=== PATIENT | male | born 1970 | race African-American/Black ===

== ENCOUNTER 2021-09-02 11:38 | Inpatient (IN) | payer MEDICAID, OTHER ==
[~2021-09-02] VITALS: Ht 188 cm; Wt 154.2 kg
[~2021-09-02 11:38] MED LIST: HYDR12.529
[2021-09-02] MEDS ORDERED: METHYLPREDNISOLONE SOD SUCC 125 MG/2 ML VIAL IV STA (11:49)
[2021-09-02] MEDS ORDERED: ALBUTEROL (0.083%) 2.5MG/3ML NEB HHN STA (11:49)
[2021-09-02] MEDS ORDERED: MAGNESIUM 2 G PREMIX 50 ML IV STA (11:49)
[2021-09-02] MEDS ORDERED: IPRATROPIUM BROMIDE (0.02%) 0.5MG/2.5ML NEB HHN STA (11:49)
[2021-09-02] MEDS ORDERED: FUROSEMIDE 40MG/4ML VIAL IVP ONE (12:00)
[2021-09-02 12:33] LABS: BASOPHILS % 0.3 % (0.0-2.0); HEMATOCRIT. 38.1 % (42.0-52.0); HEMOGLOBIN. 12.2 g/dL (14.0-18.0); LYMPHOCYTES % 17.2 % (20.0-50.0); MEAN CORPUSCULAR HEMOGLOBIN 26.5 pg (28.0-32.0); MEAN CORPUSCULAR VOLUME 82.4 fL (80.0-94.0); MEAN PLATELET VOLUME 9.2 fl (7.4-10.4); MONOCYTES % 6.9 % (2.0-8.0); NEUTROPHILS % 74.6 % (40.0-76.0); PLATELET 227 x1000/uL (130-400); RED BLOOD CELL COUNT 4.63 mill/uL (4.7-6.1); RED CELL DISTRIBUTION WIDTH 16.7 % (11.6-14.6)
[2021-09-02 12:36] LABS: CHLORIDE 96 mEq/L (98-107)
[2021-09-02] MEDS ORDERED: KCL 20MEQ/100ML PREMIX 100 ML IV ONE (13:15)
[2021-09-02] MEDS ORDERED: POTASSIUM CHLORIDE 20MEQ TABLET SR PO ONE (13:15)
[2021-09-02] MEDS ORDERED: HYDRALAZINE 20MG/ML VIAL IV PRN (15:15)
[2021-09-02] MEDS ORDERED: MORPHINE SULFATE 2 MG/ML CPJ (NOT FOR IM USE) IV PRN (15:15)
[2021-09-02] MEDS ORDERED: CLONIDINE 0.1MG TABLET PO PRN (15:15)
[2021-09-02] MEDS ORDERED: HYDROCODONE/ACETAMINOPHEN 5/325MG TABLET PO PRN (15:15)
[2021-09-02] MEDS ORDERED: GUAIFENESIN 200MG/10ML SUGAR FREE UDC PO PRN (15:15)
[2021-09-02] MEDS ORDERED: ACETAMINOPHEN 325MG TABLET PO PRN (15:15)
[2021-09-02] MEDS ORDERED: MAGNESIUM/ALUMINUM HYDROXIDE/SIMETHICONE 30ML UDC PO PRN (15:15)
[2021-09-02] MEDS ORDERED: IPRATROPIUM/ALBUTEROL 0.5-3(2.5)MG/3ML NEB HHN PRN (15:15)
[2021-09-02] MEDS ORDERED: DOCUSATE SODIUM 100MG CAPSULE PO PRN (15:15)
[2021-09-02] MEDS ORDERED: DIPHENHYDRAMINE 50MG/ML VIAL IV PRN (15:15)
[2021-09-02] MEDS ORDERED: LORAZEPAM 2MG/ML CPJ IV PRN (15:15)
[2021-09-02] MEDS ORDERED: ONDANSETRON HCL 4MG/2ML INJ IV PRN (15:15)
[2021-09-02] MEDS ORDERED: LEVOFLOXACIN 500MG PREMIX 100 ML IV ONE (16:15)
[2021-09-02 17:28] VITALS: BP 184/101
[2021-09-02] MEDS: ENOXAPARIN 40MG/0.4ML SYR SUBCUT SCH (18:08)
[2021-09-02] MEDS ORDERED: FURO80TA3 PO (18:51)
[2021-09-02] MEDS ORDERED: METF-416 PO (18:51)
[2021-09-02] MEDS ORDERED: LOSA100T32 PO (18:51)
[2021-09-02] MEDS ORDERED: SPIR50TA5 PO (18:51)
[2021-09-02] MEDS ORDERED: CARV25TA47 PO (18:51)
[2021-09-02] MEDS ORDERED: ATOR20TA65 PO (18:51)
[2021-09-02] MEDS ORDERED: EMPA25TA PO (18:51)
[2021-09-02 20:00] VITALS: BP 187/102
[2021-09-02] MEDS: AMLODIPINE 10MG TABLET PO SCH (20:41)
[2021-09-02] MEDS: SODIUM CHLORIDE 0.9% INJ 3ML FLUSH IVF SCH (20:41)
[2021-09-02] MEDS ORDERED: DEXTROSE 50% WATER 50ML SYRINGE IV PRN (21:00)
[2021-09-02] MEDS: BLOOD SUGAR DIAGNOSTIC STRIP TEST SCH (21:24)
[2021-09-02] MEDS: INSULIN LISPRO 100 UNITS/ML SUBCUT SCH (21:25)
[2021-09-02] MEDS: CLONIDINE 0.2MG TABLET PO PRN (23:50)
[2021-09-02 23:52] VITALS: BP 180/100
[2021-09-03 04:00] VITALS: BP 171/105
[2021-09-03] MEDS: HYDRALAZINE 20MG/ML VIAL IV PRN (04:04)
[2021-09-03] MEDS: SODIUM CHLORIDE 0.9% INJ 3ML FLUSH IVF SCH ×3 (06:09→20:29)
[2021-09-03] MEDS: ENOXAPARIN 40MG/0.4ML SYR SUBCUT SCH ×2 (06:10→17:27)
[2021-09-03] MEDS: BLOOD SUGAR DIAGNOSTIC STRIP TEST SCH ×4 (06:34→20:03)
[2021-09-03 07:21] LABS: HEMATOCRIT. 37.6 % (42.0-52.0); HEMOGLOBIN. 12.3 g/dL (14.0-18.0); MEAN CORPUSCULAR HEMOGLOBIN 26.7 pg (28.0-32.0); MEAN CORPUSCULAR VOLUME 81.9 fL (80.0-94.0); MEAN PLATELET VOLUME 9.5 fl (7.4-10.4); PLATELET 229 x1000/uL (130-400); RED CELL DISTRIBUTION WIDTH 16.5 % (11.6-14.6)
[2021-09-03 07:27] LABS: CHLORIDE 97 mEq/L (98-107)
[2021-09-03 08:00] VITALS: BP 159/90
[2021-09-03] MEDS ORDERED: PNEUMOCOCCAL 23-VAL P-SAC VAC 0.5 ML IM ONE (09:00)
[2021-09-03 09:19] LABS: T4 FREE 1.1 ng/dL (0.76-1.46)
[2021-09-03] MEDS: INSULIN LISPRO 100 UNITS/ML SUBCUT SCH ×4 (10:54→20:34)
[2021-09-03] MEDS: AMLODIPINE 10MG TABLET PO SCH (10:54)
[2021-09-03 12:00] VITALS: BP 177/95
[2021-09-03] MEDS: CLONIDINE 0.2MG TABLET PO PRN ×2 (13:14→20:29)
[2021-09-03 14:01] LABS: PLATELET ESTIMATE NORMAL
[2021-09-03 16:00] VITALS: BP 153/77
[2021-09-03] MEDS: POTASSIUM CHLORIDE 20MEQ TABLET SR PO SCH (16:21)
[2021-09-03] MEDS: FUROSEMIDE 40MG/4ML VIAL IVP SCH ×2 (16:21→20:28)
[2021-09-03 16:42] LABS: CREATINE KINASE MB FRACTION 4.5 ng/mL (0.5-3.6)
[2021-09-03] MEDS ORDERED: NALOXONE HCL 0.4MG/ML VIAL IV PRN (18:45)
[2021-09-03 20:00] VITALS: BP 166/94
[2021-09-03 23:28] LABS: CREATINE KINASE MB FRACTION 4.1 ng/mL (0.5-3.6)
[2021-09-04] VITALS (7 sets, daily range): BP systolic 141–179; BP diastolic 83–109
[2021-09-04] MEDS: IPRATROPIUM/ALBUTEROL 0.5-3(2.5)MG/3ML NEB HHN SCH ×4 (02:05→20:58)
[2021-09-04] MEDS: ENOXAPARIN 40MG/0.4ML SYR SUBCUT SCH ×2 (05:45→17:11)
[2021-09-04] MEDS: SODIUM CHLORIDE 0.9% INJ 3ML FLUSH IVF SCH ×3 (05:45→20:39)
[2021-09-04 06:10] LABS: BASOPHILS % 0.2 % (0.0-2.0); EOSINOPHILS % 1.2 % (0.0-5.0); HEMATOCRIT. 38.1 % (42.0-52.0); HEMOGLOBIN. 12.3 g/dL (14.0-18.0); LYMPHOCYTES % 14.3 % (20.0-50.0); MEAN CORPUSCULAR HEMOGLOBIN 26.7 pg (28.0-32.0); MEAN CORPUSCULAR VOLUME 82.5 fL (80.0-94.0); MEAN PLATELET VOLUME 9.2 fl (7.4-10.4); MONOCYTES % 8.4 % (2.0-8.0); NEUTROPHILS % 75.9 % (40.0-76.0); PLATELET 224 x1000/uL (130-400); RED BLOOD CELL COUNT 4.61 mill/uL (4.7-6.1); RED CELL DISTRIBUTION WIDTH 16.7 % (11.6-14.6)
[2021-09-04 06:17] LABS: CHLORIDE 98 mEq/L (98-107)
[2021-09-04] MEDS: BLOOD SUGAR DIAGNOSTIC STRIP TEST SCH ×4 (06:20→20:10)
[2021-09-04 06:29] LABS: CREATINE KINASE 136 IU/L (39-308)
[2021-09-04 06:36] LABS: CREATINE KINASE MB FRACTION 4.2 ng/mL (0.5-3.6)
[2021-09-04] MEDS: INSULIN LISPRO 100 UNITS/ML SUBCUT SCH ×4 (07:28→20:10)
[2021-09-04] MEDS: FUROSEMIDE 40MG/4ML VIAL IVP SCH ×2 (09:53→17:10)
[2021-09-04] MEDS: POTASSIUM CHLORIDE 20MEQ TABLET SR PO SCH (09:53)
[2021-09-04] MEDS: AMLODIPINE 10MG TABLET PO SCH (09:53)
[2021-09-04] MEDS: HYDRALAZINE 20MG/ML VIAL IV PRN ×2 (17:10→23:55)
[2021-09-04] MEDS: METOPROLOL TARTRATE 50MG TABLET PO SCH (20:38)
[2021-09-05] MEDS: IPRATROPIUM/ALBUTEROL 0.5-3(2.5)MG/3ML NEB HHN SCH ×3 (02:03→22:07)
[2021-09-05 04:00] VITALS: BP 149/90
[2021-09-05] MEDS: SODIUM CHLORIDE 0.9% INJ 3ML FLUSH IVF SCH ×3 (06:08→20:20)
[2021-09-05] MEDS: ENOXAPARIN 40MG/0.4ML SYR SUBCUT SCH ×2 (06:08→17:15)
[2021-09-05] MEDS: BLOOD SUGAR DIAGNOSTIC STRIP TEST SCH ×4 (06:21→20:17)
[2021-09-05 07:06] LABS: BASOPHILS % 0.2 % (0.0-2.0); EOSINOPHILS % 1.4 % (0.0-5.0); HEMATOCRIT. 40.4 % (42.0-52.0); HEMOGLOBIN. 13.1 g/dL (14.0-18.0); LYMPHOCYTES % 14.6 % (20.0-50.0); MEAN CORPUSCULAR HEMOGLOBIN 26.6 pg (28.0-32.0); MEAN PLATELET VOLUME 9.1 fl (7.4-10.4); MONOCYTES % 8.8 % (2.0-8.0); PLATELET 243 x1000/uL (130-400); RED BLOOD CELL COUNT 4.93 mill/uL (4.7-6.1); RED CELL DISTRIBUTION WIDTH 16.9 % (11.6-14.6)
[2021-09-05 07:10] LABS: CHLORIDE 94 mEq/L (98-107)
[2021-09-05] MEDS: INSULIN LISPRO 100 UNITS/ML SUBCUT SCH ×4 (07:41→20:18)
[2021-09-05 08:00] VITALS: BP 192/106
[2021-09-05] MEDS: POTASSIUM CHLORIDE 20MEQ TABLET SR PO SCH (09:29)
[2021-09-05] MEDS: METOPROLOL TARTRATE 50MG TABLET PO SCH ×2 (09:30→20:18)
[2021-09-05] MEDS: AMLODIPINE 10MG TABLET PO SCH (09:30)
[2021-09-05] MEDS: FUROSEMIDE 40MG/4ML VIAL IVP SCH ×2 (09:30→17:14)
[2021-09-05] MEDS ORDERED: NITROGLYCERIN SPRAY/4.9GM CAN TL NR (11:00)
[2021-09-05] MEDS ORDERED: POTASSIUM CHLORIDE 20MEQ TABLET SR PO NR (11:22)
[2021-09-05] MEDS ORDERED: METOPROLOL TARTRATE 5MG/5ML VIAL IV ONE (11:41)
[2021-09-05] MEDS ORDERED: METOPROLOL TARTRATE 5MG/5ML VIAL IV NR (11:45)
[2021-09-05 12:00] VITALS: BP 180/111
[2021-09-05] MEDS ORDERED: MAGNESIUM 2 G PREMIX 50 ML IV NR (13:00)
[2021-09-05] MEDS: HYDRALAZINE 20MG/ML VIAL IV PRN (13:05)
[2021-09-05] MEDS ORDERED: IOHEXOL-350 100 ML BOTTLE ONE (14:31)
[2021-09-05 16:00] VITALS: BP 159/95
[2021-09-05 20:00] VITALS: BP 157/79
[2021-09-06] VITALS: BP 151/94
[2021-09-06] MEDS: IPRATROPIUM/ALBUTEROL 0.5-3(2.5)MG/3ML NEB HHN SCH ×4 (02:19→20:20)
[2021-09-06] MEDS: HYDRALAZINE 20MG/ML VIAL IV PRN (03:58)
[2021-09-06 04:00] VITALS: BP 176/91
[2021-09-06] MEDS: SODIUM CHLORIDE 0.9% INJ 3ML FLUSH IVF SCH ×3 (05:20→21:42)
[2021-09-06] MEDS: ENOXAPARIN 40MG/0.4ML SYR SUBCUT SCH ×2 (05:20→17:35)
[2021-09-06] MEDS: BLOOD SUGAR DIAGNOSTIC STRIP TEST SCH ×4 (06:21→21:40)
[2021-09-06 07:48] VITALS: BP 166/92
[2021-09-06] MEDS: INSULIN LISPRO 100 UNITS/ML SUBCUT SCH ×4 (08:17→21:41)
[2021-09-06] MEDS: AMLODIPINE 10MG TABLET PO SCH (08:19)
[2021-09-06] MEDS: METOPROLOL TARTRATE 50MG TABLET PO SCH ×2 (08:20→21:40)
[2021-09-06] MEDS: POTASSIUM CHLORIDE 20MEQ TABLET SR PO SCH (08:20)
[2021-09-06] MEDS: FUROSEMIDE 40MG/4ML VIAL IVP SCH ×2 (10:52→16:59)
[2021-09-06 12:12] VITALS: BP 160/92
[2021-09-06] MEDS: CLONIDINE 0.2MG TABLET PO PRN (13:09)
[2021-09-06 16:02] VITALS: BP 162/88
[2021-09-06 20:00] VITALS: BP 152/87
[2021-09-07] VITALS: BP 148/84
[2021-09-07] MEDS: IPRATROPIUM/ALBUTEROL 0.5-3(2.5)MG/3ML NEB HHN SCH ×3 (02:23→13:15)
[2021-09-07 04:00] VITALS: BP 135/79
[2021-09-07] MEDS: ENOXAPARIN 40MG/0.4ML SYR SUBCUT SCH ×2 (06:12→17:50)
[2021-09-07] MEDS: SODIUM CHLORIDE 0.9% INJ 3ML FLUSH IVF SCH ×3 (06:12→22:35)
[2021-09-07] MEDS: BLOOD SUGAR DIAGNOSTIC STRIP TEST SCH ×4 (06:28→21:00)
[2021-09-07] MEDS: INSULIN LISPRO 100 UNITS/ML SUBCUT SCH ×4 (06:57→22:35)
[2021-09-07 08:16] VITALS: BP 152/76
[2021-09-07] MEDS: FUROSEMIDE 40MG/4ML VIAL IVP SCH ×2 (08:39→16:37)
[2021-09-07] MEDS: METOPROLOL TARTRATE 50MG TABLET PO SCH ×2 (08:39→22:33)
[2021-09-07] MEDS: AMLODIPINE 10MG TABLET PO SCH (08:39)
[2021-09-07] MEDS: POTASSIUM CHLORIDE 20MEQ TABLET SR PO SCH (08:40)
[2021-09-07 11:47] VITALS: BP 142/78
[2021-09-07 16:05] VITALS: BP 142/86
[2021-09-07 20:00] VITALS: BP 145/90
[2021-09-08] VITALS: BP 165/95
[2021-09-08] MEDS: HYDRALAZINE 20MG/ML VIAL IV PRN (01:59)
[2021-09-08 04:00] VITALS: BP 163/93
[2021-09-08] MEDS: CLONIDINE 0.2MG TABLET PO PRN (05:27)
[2021-09-08] MEDS: ENOXAPARIN 40MG/0.4ML SYR SUBCUT SCH (05:28)
[2021-09-08] MEDS: BLOOD SUGAR DIAGNOSTIC STRIP TEST SCH ×2 (05:29→12:09)
[2021-09-08] MEDS: SODIUM CHLORIDE 0.9% INJ 3ML FLUSH IVF SCH (05:29)
[2021-09-08 05:30] VITALS: BP 137/89
[2021-09-08] MEDS: INSULIN LISPRO 100 UNITS/ML SUBCUT SCH ×2 (06:38→12:09)
[2021-09-08] MEDS: IPRATROPIUM/ALBUTEROL 0.5-3(2.5)MG/3ML NEB HHN SCH ×2 (07:48→14:20)
[2021-09-08 08:00] VITALS: BP 137/87
[2021-09-08] MEDS: POTASSIUM CHLORIDE 20MEQ TABLET SR PO SCH (10:19)
[2021-09-08] MEDS: AMLODIPINE 10MG TABLET PO SCH (10:19)
[2021-09-08] MEDS: METOPROLOL TARTRATE 50MG TABLET PO SCH (10:19)
[2021-09-08] MEDS: FUROSEMIDE 40MG/4ML VIAL IVP SCH (10:20)
[2021-09-08 12:00] VITALS: BP 148/87
[2021-09-08 12:18] VITALS: BP 148/87
== END 2021-09-08 17:13 | disposition home or self-care (01) | DRG 194 ==
LOC: ER 11:44 → EDBEDREQ 13:40 → EDBEDREQTM 13:40 → ENRESERV 16:30 → 6WST 17:18
PROVIDERS: ADMIT Internal Medicine; ATTEND Internal Medicine
DX: I11.0 Hypertensive heart disease with heart failure (principal); J96.21 Acute and chronic respiratory failure with hypoxia; J84.9 Interstitial pulmonary disease, unspecified; E11.9 Type 2 diabetes mellitus without complications; E87.6 Hypokalemia; E66.01 Morbid (severe) obesity due to excess calories; D64.9 Anemia, unspecified; I50.33 Acute on chronic diastolic (congestive) heart failure; J44.9 Chronic obstructive pulmonary disease, unspecified; Z28.21 Immunization not carried out because of patient refusal; Z68.41 Body mass index [BMI] 40.0-44.9, adult; Z87.891 Personal history of nicotine dependence; Z99.81 Dependence on supplemental oxygen; Z79.899 Other long term (current) drug therapy
CPT/HCPCS: 36415; 71045; 74176; 75571; 80048; 80053; 80061; 82550; 82553; 82962; 83036; 83605; 83880; 84132; 84145; 84439; 84443; 84484; 85025; 85379; 90732; 93005; 93306; 93970; 94640; 94644; 99291; C1893; J0360; J1650; J1815; J1940; J1956; J2930; J3475; J3480; J3490; Q9967

== ENCOUNTER 2021-12-22 13:32 | Inpatient (IN) | payer MEDICAID ==
[~2021-12-22] VITALS: Ht 188 cm; Wt 151.2 kg
[~2021-12-22 13:32] MED LIST changes: +ATOR20TA65 PO; +CARV25TA47 PO; +EMPA25TA PO; +FURO80TA3 PO; +LOSA100T32 PO; +METF-416 PO; +SPIR50TA5 PO
[2021-12-22] MEDS ORDERED: IPRATROPIUM BROMIDE (0.02%) 0.5MG/2.5ML NEB HHN STA (13:52)
[2021-12-22] MEDS ORDERED: ALBUTEROL (0.083%) 2.5MG/3ML NEB HHN SCH (14:00)
[2021-12-22 14:53] LABS: BASOPHILS % 0.3 % (0.0-2.0); EOSINOPHILS % 1.3 % (0.0-5.0); HEMATOCRIT. 36.2 % (42.0-52.0); HEMOGLOBIN. 11.7 g/dL (14.0-18.0); LYMPHOCYTES % 15.6 % (20.0-50.0); MEAN CORPUSCULAR HEMOGLOBIN 25.9 pg (28.0-32.0); MEAN CORPUSCULAR VOLUME 80.6 fL (80.0-94.0); MEAN PLATELET VOLUME 9.2 fl (7.4-10.4); MONOCYTES % 9.1 % (2.0-8.0); NEUTROPHILS % 73.7 % (40.0-76.0); PLATELET 169 x1000/uL (130-400); RED CELL DISTRIBUTION WIDTH 17.3 % (11.6-14.6)
[2021-12-22 14:57] LABS: CHLORIDE 92 mEq/L (98-107)
[2021-12-22] MEDS ORDERED: KCL 10MEQ/50ML PREMIX 50 ML IV ONE ×2 (15:15)
[2021-12-22] MEDS ORDERED: POTASSIUM CHLORIDE 20MEQ/PACKET PO ONE (15:15)
[2021-12-22] MEDS ORDERED: MAGNESIUM 2 G PREMIX 50 ML IV ONE (15:15)
[2021-12-22] MEDS ORDERED: KCL 20MEQ/100ML PREMIX 100 ML IV NR (15:30)
[2021-12-22] MEDS ORDERED: IPRATROPIUM/ALBUTEROL 0.5-3(2.5)MG/3ML NEB HHN PRN (16:15)
[2021-12-22] MEDS ORDERED: DOCUSATE SODIUM 100MG CAPSULE PO PRN (16:15)
[2021-12-22] MEDS ORDERED: ONDANSETRON HCL 4MG/2ML INJ IV PRN (16:15)
[2021-12-22] MEDS ORDERED: GUAIFENESIN 200MG/10ML SUGAR FREE UDC PO PRN (16:15)
[2021-12-22] MEDS ORDERED: ACETAMINOPHEN 325MG TABLET PO PRN (16:15)
[2021-12-22] MEDS ORDERED: POTASSIUM CHLORIDE 20MEQ TABLET SR PO NR (17:30)
[2021-12-22] MEDS ORDERED: DEXTROSE 50% WATER 50ML SYRINGE IV PRN (17:30)
[2021-12-22] MEDS: BLOOD SUGAR DIAGNOSTIC STRIP TEST SCH ×2 (17:45→21:39)
[2021-12-22] MEDS: CARVEDILOL 12.5MG TABLET PO SCH (17:52)
[2021-12-22] MEDS: FUROSEMIDE 40MG/4ML VIAL IVP SCH (17:53)
[2021-12-22] MEDS ORDERED: ENOXAPARIN 40MG/0.4ML SYR SUBCUT SCH (18:00)
[2021-12-22 20:00] VITALS: BP 166/103
[2021-12-22 20:42] VITALS: BP 177/115
[2021-12-22] MEDS: HYDRALAZINE 20MG/ML VIAL IV PRN (21:38)
[2021-12-22] MEDS: INSULIN LISPRO 100 UNITS/ML SUBCUT SCH (21:39)
[2021-12-22] MEDS: ENOXAPARIN 40MG/0.4ML SYR SUBCUT SCH (21:42)
[2021-12-22 22:21] VITALS: BP 144/75
[2021-12-23] VITALS (7 sets, daily range): BP systolic 139–178; BP diastolic 86–118
[2021-12-23] MEDS: BLOOD SUGAR DIAGNOSTIC STRIP TEST SCH ×4 (06:20→21:20)
[2021-12-23] MEDS: INSULIN LISPRO 100 UNITS/ML SUBCUT SCH ×4 (06:20→21:24)
[2021-12-23] MEDS: HYDRALAZINE 20MG/ML VIAL IV PRN (06:33)
[2021-12-23 06:59] LABS: BASOPHILS % 0.3 % (0.0-2.0); EOSINOPHILS % 1.2 % (0.0-5.0); HEMATOCRIT. 37.5 % (42.0-52.0); HEMOGLOBIN. 12.1 g/dL (14.0-18.0); LYMPHOCYTES % 8.9 % (20.0-50.0); MEAN CORPUSCULAR VOLUME 80.7 fL (80.0-94.0); MEAN PLATELET VOLUME 9.6 fl (7.4-10.4); MONOCYTES % 8.5 % (2.0-8.0); NEUTROPHILS % 81.1 % (40.0-76.0); PLATELET 203 x1000/uL (130-400); RED BLOOD CELL COUNT 4.65 mill/uL (4.7-6.1); RED CELL DISTRIBUTION WIDTH 16.9 % (11.6-14.6)
[2021-12-23 07:28] LABS: CHLORIDE 93 mEq/L (98-107)
[2021-12-23 08:13] LABS: *AMPHETAMINES SCREEN URINE NEGATIVE (NEGATIVE); *BARBITURATES SCREEN URINE NEGATIVE (NEGATIVE); *BENZODIAZEPINES SCREEN URINE NEGATIVE (NEGATIVE); *COCAINE SCREEN URINE NEGATIVE (NEGATIVE); CANNABINOID URINE SCREEN NEGATIVE (NEGATIVE)
[2021-12-23 08:14] LABS: METHADONE URINE SCREEN NEGATIVE (NEGATIVE); OPIATES URINE SCREEN NEGATIVE (NEGATIVE); PHENCYCLIDINE URINE SCREEN NEGATIVE (NEGATIVE)
[2021-12-23] MEDS: ENOXAPARIN 40MG/0.4ML SYR SUBCUT SCH ×2 (08:50→21:20)
[2021-12-23] MEDS: AMLODIPINE 10MG TABLET PO SCH (08:50)
[2021-12-23] MEDS: FUROSEMIDE 40MG/4ML VIAL IVP SCH ×2 (08:50→17:26)
[2021-12-23] MEDS: CARVEDILOL 12.5MG TABLET PO SCH ×2 (08:51→17:27)
[2021-12-23] MEDS ORDERED: LOSARTAN POTASSIUM 25 MG TABLET PO SCH (09:00)
[2021-12-23] MEDS ORDERED: POTASSIUM CHLORIDE 20MEQ TABLET SR PO SCH (09:00)
[2021-12-23] MEDS ORDERED: POTASSIUM CHLORIDE INJ 40 MEQ in DEXT 5% WATER 250 ML IV ONE (09:00)
[2021-12-23] MEDS: KCL 20MEQ/100ML X 2 FOR TOTAL KCL 40MEQ/200ML IV SCH ×2 (10:26→17:26)
[2021-12-23 14:11] LABS: BG BASE EXCESS 14.3 mmol/L (-2.0-2.0); BG CARBOXYHEMOGLOBIN 1.6 % (0.5-1.5); BG DEOXYHEMOGLOBIN 4.7 % (0.0-5.0); BG FRACTION INSPIRED OXYGEN 21; BG HCO3 ACT 41.1 mmol/L (22.0-26.0); BG METHEMOGLOBIN 0.1 % (0.0-1.5); BG OXYGEN SATURATION 95.2 % (92.0-98.5); BG OXYHEMOGLOBIN 93.6 % (94.0-97.0); BG PCO2 61.5 mmHg (35.0-45.0); BG PH 7.443 (7.350-7.450); BG PO2 77.6 mmHg (75.0-100.0); BG SAMPLE SITE RIGHT RADIAL; BG TOTAL HEMOGLOBIN 12.8 g/dL (12.0-18.0); BG VENT MODE ROOM AIR
[2021-12-23] MEDS: PREDNISONE 20MG TABLET PO SCH (17:27)
[2021-12-23] MEDS: IPRATROPIUM/ALBUTEROL 0.5-3(2.5)MG/3ML NEB HHN SCH (20:54)
[2021-12-24] VITALS (19 sets, daily range): BP systolic 134–173; BP diastolic 60–122
[2021-12-24] MEDS: IPRATROPIUM/ALBUTEROL 0.5-3(2.5)MG/3ML NEB HHN SCH ×6 (00:59→21:36)
[2021-12-24] MEDS: INSULIN LISPRO 100 UNITS/ML SUBCUT SCH ×4 (06:07→20:56)
[2021-12-24] MEDS: BLOOD SUGAR DIAGNOSTIC STRIP TEST SCH ×4 (06:07→20:57)
[2021-12-24 07:34] LABS: BASOPHILS % 0.1 % (0.0-2.0); CHLORIDE 94 mEq/L (98-107); EOSINOPHILS % 0.8 % (0.0-5.0); HEMATOCRIT. 35.8 % (42.0-52.0); HEMOGLOBIN. 11.7 g/dL (14.0-18.0); LYMPHOCYTES % 8.4 % (20.0-50.0); MEAN CORPUSCULAR HEMOGLOBIN 26.2 pg (28.0-32.0); MEAN CORPUSCULAR VOLUME 80.5 fL (80.0-94.0); MONOCYTES % 7.6 % (2.0-8.0); NEUTROPHILS % 83.1 % (40.0-76.0); PLATELET 196 x1000/uL (130-400); RED BLOOD CELL COUNT 4.45 mill/uL (4.7-6.1); RED CELL DISTRIBUTION WIDTH 17.6 % (11.6-14.6)
[2021-12-24] MEDS ORDERED: POTASSIUM CHLORIDE 20MEQ TABLET SR PO SCH (08:30)
[2021-12-24] MEDS: CARVEDILOL 12.5MG TABLET PO SCH ×2 (08:32→17:39)
[2021-12-24] MEDS: ENOXAPARIN 40MG/0.4ML SYR SUBCUT SCH ×2 (08:32→20:55)
[2021-12-24] MEDS: AMLODIPINE 10MG TABLET PO SCH (08:32)
[2021-12-24] MEDS ORDERED: LOSARTAN POTASSIUM 25 MG TABLET PO SCH (09:00)
[2021-12-24] MEDS ORDERED: KCL 20MEQ/100ML PREMIX 100 ML IV SCH (10:00)
[2021-12-24] MEDS: FUROSEMIDE 40MG/4ML VIAL IVP SCH ×2 (10:01→17:40)
[2021-12-24] MEDS: PREDNISONE 20MG TABLET PO SCH ×2 (11:46→17:39)
[2021-12-24] MEDS ORDERED: METOLAZONE 10MG TABLET PO SCH (12:00)
[2021-12-24] MEDS: HYDRALAZINE 20MG/ML VIAL IV PRN (15:33)
[2021-12-24] MEDS: CLONIDINE 0.1MG TABLET PO PRN (17:39)
[2021-12-25] VITALS (11 sets, daily range): BP systolic 121–160; BP diastolic 69–100
[2021-12-25] MEDS: IPRATROPIUM/ALBUTEROL 0.5-3(2.5)MG/3ML NEB HHN SCH ×4 (00:26→20:15)
[2021-12-25] MEDS: BLOOD SUGAR DIAGNOSTIC STRIP TEST SCH ×4 (06:48→21:50)
[2021-12-25] MEDS: INSULIN LISPRO 100 UNITS/ML SUBCUT SCH ×4 (06:49→21:49)
[2021-12-25 06:58] LABS: BASOPHILS % 0.2 % (0.0-2.0); EOSINOPHILS % 0.3 % (0.0-5.0); HEMATOCRIT. 38.3 % (42.0-52.0); HEMOGLOBIN. 12.6 g/dL (14.0-18.0); LYMPHOCYTES % 8.5 % (20.0-50.0); MEAN CORPUSCULAR HEMOGLOBIN 26.2 pg (28.0-32.0); MEAN CORPUSCULAR VOLUME 80.2 fL (80.0-94.0); MONOCYTES % 6.3 % (2.0-8.0); NEUTROPHILS % 84.7 % (40.0-76.0); PLATELET 230 x1000/uL (130-400); RED BLOOD CELL COUNT 4.78 mill/uL (4.7-6.1); RED CELL DISTRIBUTION WIDTH 17.1 % (11.6-14.6)
[2021-12-25 07:06] LABS: CHLORIDE 88 mEq/L (98-107)
[2021-12-25] MEDS ORDERED: METOLAZONE 2.5MG TABLET PO NR (08:54)
[2021-12-25] MEDS ORDERED: POTASSIUM CHLORIDE 20MEQ TABLET SR PO NR ×2 (08:55→15:00)
[2021-12-25] MEDS: PREDNISONE 20MG TABLET PO SCH ×2 (09:01→16:30)
[2021-12-25] MEDS: ENOXAPARIN 40MG/0.4ML SYR SUBCUT SCH (09:02)
[2021-12-25] MEDS: CARVEDILOL 12.5MG TABLET PO SCH ×2 (09:03→16:31)
[2021-12-25] MEDS: AMLODIPINE 10MG TABLET PO SCH (09:03)
[2021-12-25] MEDS: SPIRONOLACTONE 25MG TABLET PO SCH (09:09)
[2021-12-25] MEDS: FUROSEMIDE 40MG/4ML VIAL IVP SCH ×2 (09:17→16:30)
[2021-12-25] MEDS: LOSARTAN POTASSIUM 100 MG TABLET PO SCH (09:17)
[2021-12-25] MEDS: ENOXAPARIN 30MG/0.3ML SYR SUBCUT SCH (21:50)
[2021-12-26] VITALS (8 sets, daily range): BP systolic 114–172; BP diastolic 62–104
[2021-12-26] MEDS: IPRATROPIUM/ALBUTEROL 0.5-3(2.5)MG/3ML NEB HHN SCH ×6 (00:04→20:52)
[2021-12-26] MEDS: CLONIDINE 0.1MG TABLET PO PRN (04:06)
[2021-12-26] MEDS: BLOOD SUGAR DIAGNOSTIC STRIP TEST SCH ×4 (06:09→20:24)
[2021-12-26 06:31] LABS: BASOPHILS % 0.1 % (0.0-2.0); EOSINOPHILS % 0.2 % (0.0-5.0); HEMATOCRIT. 34.4 % (42.0-52.0); HEMOGLOBIN. 11.3 g/dL (14.0-18.0); LYMPHOCYTES % 11.9 % (20.0-50.0); MEAN CORPUSCULAR VOLUME 79.4 fL (80.0-94.0); MONOCYTES % 14.8 % (2.0-8.0); PLATELET 204 x1000/uL (130-400); RED BLOOD CELL COUNT 4.33 mill/uL (4.7-6.1); RED CELL DISTRIBUTION WIDTH 16.8 % (11.6-14.6)
[2021-12-26 06:58] LABS: CHLORIDE 89 mEq/L (98-107)
[2021-12-26] MEDS: INSULIN LISPRO 100 UNITS/ML SUBCUT SCH ×4 (07:20→20:23)
[2021-12-26] MEDS: SPIRONOLACTONE 25MG TABLET PO SCH (08:05)
[2021-12-26] MEDS: PREDNISONE 20MG TABLET PO SCH (08:05)
[2021-12-26] MEDS: AMLODIPINE 10MG TABLET PO SCH (08:06)
[2021-12-26] MEDS: LOSARTAN POTASSIUM 100 MG TABLET PO SCH (08:06)
[2021-12-26] MEDS: FUROSEMIDE 40MG/4ML VIAL IVP SCH (08:06)
[2021-12-26] MEDS: ENOXAPARIN 30MG/0.3ML SYR SUBCUT SCH (08:06)
[2021-12-26] MEDS: CARVEDILOL 12.5MG TABLET PO SCH ×2 (08:08→17:38)
[2021-12-26] MEDS ORDERED: POTASSIUM CHLORIDE 20MEQ TABLET SR PO SCH (09:00)
[2021-12-26] MEDS ORDERED: FUROSEMIDE 40MG/4ML VIAL IVP SCH (09:30)
[2021-12-26] MEDS ORDERED: KCL 20MEQ/100ML X 2 FOR TOTAL KCL 40MEQ/200ML IV SCH (11:00)
[2021-12-26] MEDS ORDERED: MAGNESIUM 2 G PREMIX 50 ML IV NR (13:00)
[2021-12-26] MEDS: POTASSIUM CHLORIDE 20MEQ TABLET SR PO SCH ×2 (15:11→17:35)
[2021-12-26] MEDS: ENOXAPARIN 40MG/0.4ML SYR SUBCUT SCH (20:18)
[2021-12-27] VITALS: BP 141/76
[2021-12-27] MEDS: IPRATROPIUM/ALBUTEROL 0.5-3(2.5)MG/3ML NEB HHN SCH ×3 (00:30→09:33)
[2021-12-27 04:00] VITALS: BP 139/71
[2021-12-27] MEDS: BLOOD SUGAR DIAGNOSTIC STRIP TEST SCH ×2 (06:04→12:21)
[2021-12-27 06:57] LABS: BASOPHILS % 0.4 % (0.0-2.0); EOSINOPHILS % 2.2 % (0.0-5.0); HEMATOCRIT. 35.1 % (42.0-52.0); HEMOGLOBIN. 11.6 g/dL (14.0-18.0); LYMPHOCYTES % 25.4 % (20.0-50.0); MEAN CORPUSCULAR HEMOGLOBIN 26.4 pg (28.0-32.0); MEAN CORPUSCULAR VOLUME 80.1 fL (80.0-94.0); MEAN PLATELET VOLUME 9.8 fl (7.4-10.4); MONOCYTES % 14.9 % (2.0-8.0); NEUTROPHILS % 57.1 % (40.0-76.0); PLATELET 219 x1000/uL (130-400); RED BLOOD CELL COUNT 4.38 mill/uL (4.7-6.1); RED CELL DISTRIBUTION WIDTH 16.8 % (11.6-14.6)
[2021-12-27] MEDS: INSULIN LISPRO 100 UNITS/ML SUBCUT SCH ×2 (07:20→12:43)
[2021-12-27 08:06] VITALS: BP 144/84
[2021-12-27] MEDS: SPIRONOLACTONE 25MG TABLET PO SCH (08:54)
[2021-12-27] MEDS: CARVEDILOL 12.5MG TABLET PO SCH (08:54)
[2021-12-27] MEDS: LOSARTAN POTASSIUM 100 MG TABLET PO SCH (08:54)
[2021-12-27] MEDS: AMLODIPINE 10MG TABLET PO SCH (08:54)
[2021-12-27] MEDS: POTASSIUM CHLORIDE 20MEQ TABLET SR PO SCH (08:54)
[2021-12-27] MEDS: ENOXAPARIN 40MG/0.4ML SYR SUBCUT SCH (08:55)
[2021-12-27] MEDS ORDERED: MAGNESIUM OXIDE 400MG TABLET PO SCH (09:00)
[2021-12-27] MEDS ORDERED: PREDNISONE 20MG TABLET PO SCH (09:00)
[2021-12-27 10:00] VITALS: BP 139/78
[2021-12-27 12:00] VITALS: BP 135/80
[2021-12-27] MEDS ORDERED: FURO80TA87 MT (12:45)
[2021-12-27] MEDS ORDERED: POTA-79 MT (12:45)
[2021-12-27 14:04] VITALS: BP 135/80
== END 2021-12-27 15:15 | disposition home or self-care (01) | DRG 140 ==
LOC: ER 13:32 → 3WST 16:08
PROVIDERS: ADMIT Internal Medicine; ATTEND Internal Medicine
PROC: 5A09357 Assistance with Respiratory Ventilation, Less than 24 Consecutive Hours, Continuous Positive Airway Pressure (ICD-10-PCS; principal; 2021-12-22)
PROC: 5A09357 Assistance with Respiratory Ventilation, Less than 24 Consecutive Hours, Continuous Positive Airway Pressure (ICD-10-PCS; 2021-12-23)
PROC: 5A09357 Assistance with Respiratory Ventilation, Less than 24 Consecutive Hours, Continuous Positive Airway Pressure (ICD-10-PCS; 2021-12-25)
PROC: 5A09357 Assistance with Respiratory Ventilation, Less than 24 Consecutive Hours, Continuous Positive Airway Pressure (ICD-10-PCS; 2021-12-26)
PROC: 5A09357 Assistance with Respiratory Ventilation, Less than 24 Consecutive Hours, Continuous Positive Airway Pressure (ICD-10-PCS; 2021-12-27)
DX: J44.1 Chronic obstructive pulmonary disease with (acute) exacerbation (principal); J96.22 Acute and chronic respiratory failure with hypercapnia; I50.33 Acute on chronic diastolic (congestive) heart failure; I11.0 Hypertensive heart disease with heart failure; Z99.81 Dependence on supplemental oxygen; I45.10 Unspecified right bundle-branch block; E87.6 Hypokalemia; E66.01 Morbid (severe) obesity due to excess calories; E11.9 Type 2 diabetes mellitus without complications; F12.90 Cannabis use, unspecified, uncomplicated; E78.5 Hyperlipidemia, unspecified; G47.33 Obstructive sleep apnea (adult) (pediatric); Z68.41 Body mass index [BMI] 40.0-44.9, adult; Z79.84 Long term (current) use of oral hypoglycemic drugs; Z79.899 Other long term (current) drug therapy; Z87.891 Personal history of nicotine dependence
CPT/HCPCS: 36415; 36600; 71045; 80048; 80053; 80061; 80305; 82375; 82805; 82962; 83735; 83880; 84443; 84484; 85025; 93005; 94640; 94660; 99291; J0360; J1650; J1815; J1940; J3475; J3480; J7040; J7512